=== PATIENT | male | born 2000 | race Hispanic/Latino ===

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

== ENCOUNTER → 2022-06-03 16:36 | Outpatient (CLI) | payer SELFPAY ==
[2022-06-03 18:30] LABS: Urine Chlamydia DETECTED; Urine N gonorrhoeae NOT DETECTED
== END ==
PROVIDERS: Visit Provider Nurse Practitioner Family
DX: Z11.3 Encounter for screening for infections with a predominantly sexual mode of transmission (principal)
CPT/HCPCS: 87491; 87591

== ENCOUNTER → 2022-12-03 16:53 | Outpatient (CLI) | payer OTHER, SELFPAY ==
[2022-12-03 22:18] LABS: Urine N gonorrhoeae NOT DETECTED
[2022-12-03 22:28] LABS: Urine Chlamydia NOT DETECTED
== END ==
PROVIDERS: Visit Provider Student in an Organized Health Care Education/Training Program
DX: Z11.3 Encounter for screening for infections with a predominantly sexual mode of transmission (principal)
CPT/HCPCS: 87491; 87591

== ENCOUNTER → 2022-12-06 13:11 | Outpatient (CLI) | payer OTHER, SELFPAY ==
[2022-12-07 07:08] LABS: RPR Screen Non Reactive (Non Reactive)
[2022-12-07 19:35] LABS: HIV 1 & 2 Ab/Ag 4th Gen Combo NEGATIVE (NEGATIVE); Hep C Virus Ab w/Reflex Quant NEGATIVE s/c (NEGATIVE)
[2022-12-08 07:34] LABS: HSV 1 DNA Negative (Negative); HSV 2 DNA Negative (Negative)
== END ==
PROVIDERS: Referring Provider Student in an Organized Health Care Education/Training Program; Visit Provider Student in an Organized Health Care Education/Training Program
DX: Z11.3 Encounter for screening for infections with a predominantly sexual mode of transmission (principal); R30.0 Dysuria
CPT/HCPCS: 36415; 86592; 86803; 87086; 87389; 87529

== ENCOUNTER 2022-12-15 16:38 | Emergency (ER) | payer OTHER, SELFPAY ==
[2022-12-15 16:50] VITALS: BP 131/62; PULSE 60; RESP 16; TEMP 36.9; O2SAT 98; BMI 22.3
--- NOTE | 2022-12-15 17:13 | DI.US.S_ITS ---
PROCEDURE: US SCROTUM INDICATIONS: PAIN X 1 MONTH TECHNIQUE: Real-time scanning was performed of the scrotum and testicles, with image documentation. Color and pulse Doppler interrogation was performed of both testicles. COMPARISON: None. FINDINGS: Right: Testicle is normal in size at 4.7 x 2.7 x 3.4 cm, and homogenous in echotexture. Epididymis is normal in overall size and morphology. No hydrocele or varicoceles. Overlying scrotal skin is normal in thickness. Left: Testicle is normal in size at 5.0 x 2.7 x 2.5 cm, and homogeneous in echotexture. Epididymis is normal in overall size and morphology. No hydrocele or varicoceles. Overlying scrotal skin is normal in thickness. Doppler: Color and pulse Doppler demonstrate normal and symmetric arterial flow in both testicles. IMPRESSION: 1. No acute process. Dictated by: Rafa Paiz M.D. on 12/15/2022 at 18:12 Approved by: Rafa Paiz M.D. on 12/15/2022 at 18:13
[2022-12-15 17:42] LABS: Appearance Urine UA CLEAR; Bilirubin Urine UA NEGATIVE (NEGATIVE); Color Urine UA YELLOW; Glucose Urine UA NEGATIVE (Negative); Ketones Urine UA NEGATIVE (NEGATIVE); Leukocyte Esterase Urine UA NEGATIVE (NEGATIVE); Nitrite Urine UA NEGATIVE (Negative); Occult Blood Urine UA TRACE-INTACT (Negative); Protein Urine UA NEGATIVE (Negative); Specific Gravity Urine UA <=1.005 (1.000-1.035); Urobilinogen Urine UA 0.2 E.U./dL (0.2); pH Urine UA 6.5 (4.5-8.0)
--- NOTE | 2022-12-15 17:47 | PC.NURSE ---
Pt states testicles are pale in color. Pt states increased pain with ejaculation.
[2022-12-15 17:53] LABS: Bacteria Urine None Seen; RBC Urine 0-1/HPF (0-5/HPF); Squamous Epithelial Cell Urine None Seen (0-5/HPF); WBC Urine None Seen (0-5/HPF)
[2022-12-15 17:54] LABS: Culture Indicated Urine Cult Not Indicated
--- NOTE | 2022-12-15 18:11 | ED_ITS ---
HPI - Male Genitourinary General Chief complaint: Urogenital-Male Stated complaint: testicle pain worsening/wic visit [id number] Time Seen by Provider: 12/15/22 18:02 Source: patient Mode of arrival: Ambulatory History of Present Illness HPI Narrative: Patient here for intermittent to take a pain that alternates between left and right side. Sometimes 1 size seems bigger than the other. Denies denies any dysuria or urethral discharge. Patient states sometimes the stream when urinating splits into to streams. But not all time. Currently denies any testicular pain. Patient seen December 03, 2022 at urgent care. Negative chlamydia in the urine. Patient had chlamydia however in December 01, 2021. Patient states does not feel like that. Patient is sexually active. Denies any painful sexual activity. He states he has been having a lot of sex recently. Patient denies any history hernia. No known injury. No fever chills. Related Data Allergies Allergy/AdvReac Type Severity Reaction Status Date / Time No Known Drug Allergies Allergy Unverified 06/03/22 16:34 Review of Systems Review of Systems Narrative: GENERAL: negative chills, fatigue, malaise, fever, sweats. HEENT: negative sinus pain, ear pain, sore throat RESPIRATORY: negative dyspnea, cough CARDIOVASCULAR: negative chest pain, palpitations GASTROINTESTINAL: negative nausea, vomiting, abdominal pain : negative dysuria, frequency, hematuria, positive testicular pain MUSCULOSKELETAL: negative muscle or bony pain SKIN: negative rash, skin lesions NEUROLOGIC: negative weakness, numbness ROS Unobtainable: All systems reviewed & are unremarkable except as noted in HPI and below Patient History Social History Smoking Status: Never smoker Smoking Status: Never smoker Substance Use Type: marijuana Exam Narrative Exam Narrative: GENERAL: in no distress, not toxic not dyspneic HEAD: Normocephalic. EYES: Pupils equal round GASTROINTESTINAL: Abdomen soft, non-tender : Patient is circumcised. No lesions on the penis or scrotum. No palpable inguinal hernia or scrotal hernia on supine and standing position with digital scrotal exam. Nontender testicles and epididymis. Positive strong bilateral cremasteric reflexes. No horizontal position of the scrotum/testicles. No urethral discharge EXTREMITIES: No gross deformities. BACK: No flank tenderness. NEURO: AOx4. SKIN: Warm and dry PSYCH: Not anxious, is cooperative Initial Vital Signs Initial Vital Signs: Vital Signs Temperature 98.5 F 12/15/22 16:50 Pulse Rate 60 12/15/22 16:50 Respiratory Rate 16 12/15/22 16:50 Blood Pressure 131/62 12/15/22 16:50 Pulse Oximetry 98 12/15/22 16:50 Oxygen Delivery Method Room Air 12/15/22 16:50 Course Orders Ordered: ED Orders 12/15/22 17:13 US scrotum Stat 12/15/22 17:35 UA Complete [Urinalysis and Microscopic] Stat Vital Signs Vital signs: Vital Signs - 8 hr 12/15/22 16:50 Temperature 98.5 F Pulse Rate 60 Respiratory Rate 16 Blood Pressure 131/62 Pulse Oximetry 98 Oxygen Delivery Method Room Air MDM - Male Genitourinary Lab Data Labs: Lab Results 12/15/22 Range/Units 17:35 Urine Color Yellow Urine Appearance Clear Urine pH 6.5 (4.5-8.0) Ur Specific [place] <=1.005 (1.000-1.035) Urine Protein Negative (Negative) Urine Glucose (UA) Negative (Negative) g/dL Urine Ketones Negative (NEGATIVE) Urine Occult Blood Trace-intact (Negative) Urine Nitrate Negative (Negative) Urine Bilirubin Negative (NEGATIVE) Urine Urobilinogen 0.2 (0.2) E.U./dL Ur Leukocyte Esterase Negative (NEGATIVE) Urine RBC 0-1/hpf (0-5/HPF) Urine WBC None seen (0-5/HPF) Ur Squamous Epith Cells None seen (0-5/HPF) Urine Bacteria None seen (None) Ur Culture Indicated? Cult not indicated Imaging Data Scrotal ultrasound: Radiologist's Impression: FINDINGS:? ? Right:? Testicle is normal in size at 4.7 x 2.7 x 3.4 cm, and homogenous in echotexture.? Epididymis is normal in overall size and morphology.? No hydrocele or vari coceles.? Overlying scrotal skin is normal in thickness.? ? Left:? Testicle is normal in size at 5.0 x 2.7 x 2.5 cm, and homogeneous in echotexture.? Epididymis is normal in overall size and morphology.? No hydrocele or varicoceles.? Overlying scrotal skin is normal in thickness.? ? Doppler:? Color and pulse Doppler demonstrate normal and symmetric arterial flow in both testicles.? ? IMPRESSION:? 1. No acute process.? MDM Narrative Medical decision making narrative: Patient here for intermittent to take a pain that alternates between left and right side. Sometimes 1 size seems bigger than the other. Denies denies any dysuria or urethral discharge. Patient states sometimes the stream when urinating splits into to streams. But not all time. Currently denies any testicular pain. Patient seen December 03, 2022 at urgent care. Negative chlamydia in the urine. Patient had chlamydia however in December 01, 2021. Patient states does not feel like that. Patient is sexually active. Denies any painful sexual activity. He states he has been having a lot of sex recently. Patient denies any history hernia. No known injury. No fever chills. After history and exam urinalysis scrotal ultrasound [facility] CC: Testicular pain Complicating co-morbidities: History of chlamydia Data collected from: Patient Medical records reviewed: Records and labs from December 03, 2022 at walk-in clinic here. Differential considered: Includes but not limited to testicular torsion urethritis epididymitis hernia varicocele hydrocele Exam documented above, pertinent findings include: Nontender testicles Lab Test results independently reviewed as above. Pertinent findings: Urinalysis negative leukocyte negative nitrites negative bacteria Imaging studies independently reviewed: Scrotal ultrasound no acute findings Re-evaluations: Reviewed results with patient. Agrees for follow up with Urology. I will give him a referral to Urology. Nontoxic at discharge. Return precautions reviewed with him. Encouraged him to have a break from having sex at this time. Until follow up with Urology Discussion: Appropriate for discharge home. Exam and laboratory studies and imaging are reassuring. No antibiotics or surgical consult indicated at this time. Although unknown source of his discomfort right now, I did encourage him to take a break from having sex until urological office evaluation. Likely not torsion. Likely not urethritis. Return precautions reviewed with him. He desires discharge home Diagnosis: Testicular pain Discharge Plan Departure Patient Disposition: Home Clinical Impression: Pain in both testicles Instructions: DI for Testicular Pain Activity Restrictions/Additional Instructions: No sexual activity until you have your appointment for re-evaluation with urology services. Please call provided phone number tomorrow to make appointment. At this time laboratory studies and ultrasound are reassuring. However, return if worse if any questions or concerns. Referrals: Miscellaneous,Doctor, [Primary Care Provider] - Mariela Olson MD [Non-Staff] - Stand Alone Forms: Patient Portal/API
[2022-12-15 18:23] VITALS: BP 134/62; PULSE 64; RESP 18; O2SAT 99
[2023-01-06 19:20] LABS: Urine N gonorrhoeae NOT DETECTED
[2023-01-06 19:36] LABS: Urine Chlamydia NOT DETECTED
== END 2022-12-15 18:25 | disposition home or self-care (01) ==
PROVIDERS: Nurse Practitioner Critical Care Medicine; Nurse Practitioner Family; Emergency Provider Emergency Medicine
DX: N50.812 Left testicular pain (principal); N50.811 Right testicular pain
CPT/HCPCS: 76870; 81001; 87491; 87591; 93975; 99282; 99284

== ENCOUNTER 2023-04-14 12:48 | Emergency (ER) | payer OTHER, SELFPAY ==
[2023-04-14 12:59] VITALS: BP 142/77; PULSE 81; RESP 16; TEMP 36.9; O2SAT 98; BMI 20.7
--- NOTE | 2023-04-14 14:34 | ED_ITS ---
HPI - General Adult General Chief complaint: Urogenital-Male Stated complaint: Poss hernia, [employer] pain Time Seen by Provider: 04/14/23 14:15 Source: patient Mode of arrival: Ambulatory History of Present Illness HPI narrative: 23-year-old male who is here for evaluation of discomfort in his lower abdomen. He states he is having some fullness in his testicles but no specific testicular pain. He is having loose stools but it is not diarrhea not constipation. No change with urinary symptoms. He also states he is having discomfort along his left buddhism it is having some sinus congestion. No fevers. No prior abdominal surgeries. Has had a history of chlamydia but has no concerned about STIs currently. Related Data Previous Rx's Medication Instructions Recorded doxycycline hyclate 100 mg capsule 100 mg PO BID #14 caps 01/06/23 Allergies Allergy/AdvReac Type Severity Reaction Status Date / Time No Known Drug Allergies Allergy Unverified 01/06/23 16:55 Review of Systems Constitutional Constitutional: Reports system reviewed and no additional complaints, except as documented Gastrointestinal Gastrointestinal: Reports system reviewed and no additional complaints, except as documented Genitourinary Genitourinary: Reports system reviewed and no additional complaints, except as documented Integumentary/Breasts Skin/Breast: Reports system reviewed and no additional complaints, except as documented Hematologic/Lymphatic On Anticoagulants: No Patient History Social History Smoking Status: Never smoker Smoking Status: Never smoker Substance Use Type: marijuana Exam Initial Vital Signs Initial Vital Signs: Vital Signs Temperature 98.5 F 04/14/23 12:59 Pulse Rate 81 04/14/23 12:59 Respiratory Rate 16 04/14/23 12:59 Blood Pressure 142/77 H 04/14/23 12:59 Pulse Oximetry 98 04/14/23 12:59 Oxygen Delivery Method Room Air 04/14/23 12:59 HENMT Ears: TM's normal bilaterally Mouth: oral mucosae normal GI Inspection: normal to inspection and non-distended Palpation: No firm, No guarding and tender (Suprapubic region) General: bimanual renal exam normal bilaterally External: normal external exam Penis: normal penis Testes: normal, testicular lie normal and no testicular swelling Other: No inguinal hernia noted Skin General: no rashes or lesions noted Neuro General: patient alert and patient oriented x3 Extrem General: normal to inspection and capillary refill normal Course Orders Ordered: ED Orders 04/14/23 14:20 Urine Microscopic Stat Vital Signs Vital signs: Vital Signs - 8 hr 04/14/23 12:59 04/14/23 15:26 Temperature 98.5 F Pulse Rate 81 66 Respiratory Rate 16 16 Blood Pressure 142/77 H 131/71 Pulse Oximetry 98 97 Oxygen Delivery Method Room Air Room Air Medical Decision Making Lab Data Lab results reviewed: Yes I reviewed the patient's lab results. Labs: Lab Results 04/14/23 Range/Units 14:20 Urine RBC 0-1/hpf (0-5/HPF) Urine WBC None seen (0-5/HPF) Ur Squamous Epith Cells None seen (0-5/HPF) Urine Bacteria None seen (None) Ur Culture Indicated? Cult not indicated Urine Dip Bedside Urine Glucose Negative Bedside Urine Bilirubin - Negative Bedside Urine Ketone - Negative Urine Specific [place] 1.025 Bedside Urine Occult Blood +/- Bedside Urine pH 6.0 Bedside Urine Protein - Negative Bedside Urine Urobilinogen - Negative Bedside Urine Nitrite - Negative Bedside Urine Leukocytes - Negative Esterase Point of care testing: Urine Dip Bedside Urine Glucose Negative Bedside Urine Bilirubin - Negative Bedside Urine Ketone - Negative Urine Specific [place] 1.025 Bedside Urine Occult Blood +/- Bedside Urine pH 6.0 Bedside Urine Protein - Negative Bedside Urine Urobilinogen - Negative Bedside Urine Nitrite - Negative Bedside Urine Leukocytes - Negative Esterase MDM Narrative Medical decision making narrative: Patient has a very benign exam. I have low suspicion for testicular torsion. He is no specific testicular tenderness. His pain is suprapubic. No inguinal hernia felt. Urinalysis is unremarkable. He has no concern for sexually transmitted infections. No vomiting. His HEENT exam is relatively unremarkable. I had a long discussion with the patient. I feel that we should hold on any radiologic studies for now as I have low suspicion for intra- abdominal pathology such as appendicitis/diverticulitis/bowel obstruction. Plan will be is to discharge home. He can use anti inflammatories as needed. Also supportive clothing. He was given strict return precautions. He expressed understanding and agreement with plan. Discharge Plan Departure Patient Disposition: Home Clinical Impression: Abdominal pain Instructions: Acute Abdominal Pain Activity Restrictions/Additional Instructions: I do recommend that you take Tylenol/ibuprofen and wear supportive clothing. If your symptoms worsen over the next 24-48 hours please return to the emergency department for further evaluation. Prescriptions: No Action doxycycline hyclate 100 mg capsule 100 mg PO BID Qty: 14 0RF Referrals: Miscellaneous,Doctor, MD [Primary Care Provider] - Stand Alone Forms: Patient Portal/API, Work Release Note
[2023-04-14 14:53] LABS: Bacteria Urine None Seen; Culture Indicated Urine Cult Not Indicated; RBC Urine 0-1/HPF (0-5/HPF); Squamous Epithelial Cell Urine None Seen (0-5/HPF); WBC Urine None Seen (0-5/HPF)
[2023-04-14 15:26] VITALS: BP 131/71; PULSE 66; RESP 16; O2SAT 97
== END 2023-04-14 15:27 | disposition home or self-care (01) ==
PROVIDERS: Emergency Provider Emergency Medicine
DX: R10.30 Lower abdominal pain, unspecified (principal)
CPT/HCPCS: 81003; 81015; 99281; 99282